=== PATIENT | male | born 1980 | race Caucasian/White ===

== ENCOUNTER 2022-04-06 10:04 | Emergency (ER) | payer SELFPAY ==
--- NOTE | 2022-04-06 10:09 | ED.NAVMDI ---
HPI - Nausea/Vomiting/Diarrhea General Chief complaint: Nausea/Vomiting/Diarrhea Stated complaint: vomitting,nausea Time Seen by Provider: 04/06/22 10:09 Source: patient and RN notes reviewed History of Present Illness HPI Narrative: Patient is a 42-year-old male who presents the urgent care with complaints of nausea, loose stools and vomiting. Patient states that it started yesterday and he had to leave work today due to the extreme nausea. Patient denies of any abdominal pain and feels that the symptoms are starting to get a little bit better. Patient states his last full meal was a pork chop that he made at home. Denies of any ill exposures. Patient has not taken anything [id number] for his symptoms. Patient denies a fever or upper respiratory complaints. No other acute complaints. No acute distress noted. Patient aware of the plan of care. Some parts of this dictation were generated by voice recognition software and may contain typographical and/or grammatical inaccuracies. Related Data Home Medications Medication Instructions Recorded Confirmed No Home Medications 04/06/22 04/06/22 Allergies Allergy/AdvReac Type Severity Reaction Status Date / Time No Known Allergies Allergy Verified 04/06/22 10:21 Review of Systems Review of Systems: CONSTITUTIONAL: Denies fever, chills, or sweats. EYES: Denies visual changes, redness, or discharge. ENT: Denies rhinorrhea, congestion, sore throat, or otalgia. CARDIOVASCULAR: Denies chest pain, palpitations, or edema. RESPIRATORY: Denies cough or dyspnea. GASTROINTESTINAL: Reports of nausea, vomiting and diarrhea without abdominal pain GENITOURINARY: Denies dysuria or hematuria. SKIN: Denies rash or itching. MUSCULOSKELETAL: Denies back pain, joint pain, or myalgia. NEUROLOGIC: Denies headache, numbness, or weakness. All other systems reviewed are negative, except as documented in HPI. PMFSH Comments At the time of my signature, I reviewed and agree with the nursing past medical, surgical, social, and family history. There is no relevant family history pertinent to the patient complaint. Exam Narrative: GENERAL: This is a well-nourished, well-developed patient, in no apparent distress. HEAD: normocephalic, atraumatic. EYES: PERRL. Sclera clear/white. Vision is grossly intact. EARS: External ears normal NOSE: External nose normal with no obvious nasal discharge, nares without redness, no rhinorrhea. THROAT: Mucous membranes moist NECK: Neck supple CARDIOVASCULAR: Regular rate and rhythm without murmurs, gallops, or rubs. RESPIRATORY: Clear to auscultation. Breath sounds equal bilaterally. No wheezes, rales, or rhonchi. GASTROINTESTINAL: Abdomen soft, non-tender, nondistended. Bowel sounds are hyperactive. No guarding. SKIN: warm, intact with no suspicious lesions or rash, good texture and turgor. NEURO: awake, alert, and oriented to person, place and time. There were no obvious focal neurologic abnormalities. EXTREMITIES: No clubbing, cyanosis, or edema. Course Course Level of Care: Express Care Visit Vital Signs Vital signs: Vital Signs Temperature 99.1 F 04/06/22 10:14 Pulse Rate 60 04/06/22 10:14 Respiratory Rate 16 04/06/22 10:14 Blood Pressure 140/85 04/06/22 10:14 Pulse Oximetry 100 04/06/22 10:14 Oxygen Delivery Room Air 04/06/22 10:14 Temperature 99.1 F 04/06/22 10:14 Pulse Rate 60 04/06/22 10:14 Respiratory Rate 16 04/06/22 10:14 Blood Pressure 140/85 04/06/22 10:14 Pulse Oximetry 100 04/06/22 10:14 Oxygen Delivery Room Air 04/06/22 10:14 Reviewed MDM - Nausea/Vomiting/Diarrhea MDM Narrative Medical decision making narrative: Advised patient to use Pepto-Bismol [id number] for symptom relief. Eat bland foods for the next 24 to 48 hours for stomach rest. Increase water intake. If you develop any increase in symptoms associated persistent nausea, vomiting, abdominal pain and fever?go to the
[2022-04-06 10:14] VITALS: BP 140/85; PULSE 60; RESP 16; TEMP 37.3; O2SAT 100
[2022-04-06 11:21] VITALS: BP 129/79; PULSE 79; RESP 18; O2SAT 100
== END 2022-04-06 10:35 | disposition home or self-care (01) ==
PROVIDERS: Emergency Provider Nurse Practitioner Family
DX: R11.2 Nausea with vomiting, unspecified (principal); Z96.651 Presence of right artificial knee joint; M92.529 Juvenile osteochondrosis of tibia tubercle, unspecified leg
CPT/HCPCS: 99211; G0463

== ENCOUNTER 2025-10-10 10:45 | Emergency (ER) | payer SELFPAY ==
--- NOTE | ~2025-10-10 | XR_ITS ---
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 Findings: No acute fracture or malalignment. No significant degenerative changes. Soft tissues unremarkable. Impression: No acute fracture or malalignment. Reviewed, dictated and finalized at location P. UCT SAFETY TESTER Impression: No acute fracture or malalignment.
[2025-10-10 11:02] VITALS: BP 147/86; PULSE 72; RESP 18; TEMP 36.6; O2SAT 100
--- NOTE | 2025-10-10 11:35 | ED.GENADULT ---
HPI - General Adult General Chief complaint: Extremity Injury, Upper Stated complaint: Numbness, Burning of Both Hands Time Seen by Provider: 10/10/25 11:25 Source: patient, RN notes reviewed and old records reviewed Mode of arrival: ambulatory Limitations: no limitations History of Present Illness HPI narrative: 45 year old male presents to [facility] care with complaints of bilateral hands burning and pain to the fingers of both hands predominantly to 1st thru 3rd fingers of hands. Patient reports that he is dropping things at work and he has tingling and numbness to his fingers for about 1-2 month with no known injury.. Patient also reports that he has pain and decreased mobility to his left shoulder and is unable to raise arm upward. 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 Patient has not taken any OTC medications for his disomfort. MD complaint: bilateral hand pain and burning and also pain left shoulder Onset (ago): month(s) (1-2 months ago) Severity scale (1-10): 8 Related Data Allergies Allergy/AdvReac Type Severity Reaction Status Date / Time No Known Allergies Allergy Verified 10/10/25 11:01 Review of Systems Review of Systems: CONSTITUTIONAL: Denies fever, chills, or sweats. EYES: Denies visual changes, redness, or discharge. ENT: Denies rhinorrhea, congestion, sore throat, or otalgia. CARDIOVASCULAR: Denies chest pain, palpitations, or edema. RESPIRATORY: Denies cough or dyspnea. GASTROINTESTINAL: Denies abdominal pain, nausea, vomiting, or diarrhea. GENITOURINARY: Denies dysuria or hematuria. SKIN: Denies rash or itching. MUSCULOSKELETAL: Denies back pain, Left shoulder joint pain, or myalgia.+Tinel test noted bilaterally, tingling and burning to bilateral hands with numbness sensation to 1-3rd fingers NEUROLOGIC: Denies headache, numbness, or weakness. PSYCHIATRIC: Denies anxiety or depression. All systems reviewed & are unremarkable except as noted in HPI and below PMFSH Comments At time of signature, agree with nursing past medical, surgical, social and family history. There is no relevant family history pertinent to the presenting complaint Exam Narrative: GENERAL: Well-appearing, well-nourished, and in no acute distress. HEAD: Normocephalic, atraumatic. EYES: PERRLA and EOMI. ENT: Nares clear, no rhinorrhea or epistaxis. Mucous membranes moist. NECK: Supple. no lymphadenopathy CHEST: Clear to auscultation. No respiratory distress. SAO2 100% on room air HEART: Regular rate and rhythm. No murmur heard. Normal peripheral pulses. ABDOMEN: Soft, nontender, nondistended, normal active bowel sounds. EXTREMITIES: Normal range of motion. No edema. Exception noted with decreased extension and flexion of left shoulder due to pain, bilateral burning of bilateral hands with numbness tingling to 1-3 fingers of bilateral hands.+Tinel tests bilateral wrists. Pulses strong bilateral radial and nail beds have brisk capillary refill. SKIN: Warm, dry, no rash. NEURO: No focal deficits. Alert and oriented x3. Course Course Level of Care: Express Care Visit Vital Signs Vital signs: Vital Signs Temperature 36.6 C 10/10/25 11:02 Pulse Rate 72 10/10/25 11:02 Respiratory Rate 18 10/10/25 11:02 Blood Pressure 147/86 H 10/10/25 11:02 Pulse Oximetry 100 10/10/25 11:02 Oxygen Delivery Room Air 10/10/25 11:02 Temperature 36.6 C 10/10/25 11:02 Pulse Rate 72 10/10/25 11:02 Respiratory Rate 18 10/10/25 11:02 Blood Pressure 147/86 H 10/10/25 11:02 Pulse Oximetry 100 10/10/25 11:02 Oxygen Delivery Room Air 10/10/25 11:02 reviewed MDM MDM Narrative Medical decision making narrative: 45 year old male with 1-2 month duration of burning pain to bilateral hands with numbness and tingling to1-3rd fingers of hands has become increasingly difficulty to hold tool at his job reports dropping things. Patient also reports decreased mobility of left shoulder with inability to raise above head. Shoulder x-ray negative for any mal alignment or degenerative changes. Patient to try bedtime splints to bilateral wrists and 5 days of steroid RX and to take Tylenol or Ibuprofen for pain. Recommended patient make follow up appointment with ortho or hand surgeon for further evaluation. Anticipatory guidance and reason to seek care in ED reviewed with patient with understanding voiced. Differential Diagnosis Differential Diagnosis: Differential diagnostic considerations for upper extremity injury include sprain/strain of wrist, fracture of wrist, finger sprain, dislocation of finger, fracture of hand, dislocation of shoulder, fracture of humerus, fracture of clavicle, laceration, tendon injury, carpal tunnel syndrome.? Imaging Data Attestation: I personally reviewed and interpreted this imaging study as follows: My impression: No fracture or mal alignment no degenerative changes Radiologist's impression: ITS Impressions Shoulder X-Ray 10/10/25 11:56 Impression: No acute fracture or malalignment. 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 Findings: No acute fracture or malalignment. No significant degenerative changes. Soft tissues unremarkable. Impression: No acute fracture or malalignment. Reviewed, dictated and finalized at location P. PHERAL EDP EQUIPMENT OPERATOR Please be advised this is a medical document. It is intended for [id number] communication. It is written in medical language and may contain unfamiliar abbreviations or verbiage. Medical documents are intended to carry relevant information, facts as evident, and the clinical opinion of the practitioner at the time of the encounter. This report may have been done utilizing a voice recognition system. Attempts have been made to correct errors. However, there may be uncorrected grammatical, spelling, and recognition errors present. The file time of this note does not necessarily represent the time of service. Dictated By: Omar Conner MD 10/10/25 1156 Signed By: <Electronically signed by Omar Conner MD in OV> Critical Care Time Critical Care Time Critical Care Time: No Discharge Plan Discharge Clinical Impression: Carpal tunnel syndrome, bilateral, Left shoulder strain Patient Disposition: Home Condition: Stable Instructions: Carpal Tunnel Syndrome (DC), Shoulder Pain (ED) Additional Instructions: Tylenol for lesser pain Ibuprofen regularly for the next 2-3 days for the inflammation 400-600 mg po 3 times daily for 3days Prednisone 40 mg daily for 5 days Follow-up with orthopedic surgeon or hand surgeon in regards to hand pain and burning Follow-up with PCP if further problems or concerns Ice to the area 20-30 minutes 4-6 times a day Elevate above heart If your symptoms persist, change or worsen significantly before you can contact your personal physician then please, without delay, go to the emergency department for further evaluation. Follow-up with PCP in 7-10 days or sooner if needed Follow up with PCP soon in regards to your blood pressure which is elevated above threshold for referral. Blood pressure above 120/80 may indicate pre-hypertension.146/86 Patient Language: Yakut Prescriptions: New prednisone 20 mg tablet 40 mg PO DAILY 5 Days Qty: 10 0RF Follow-up/Referrals: PHYSICIAN,CHIEF NURSING OFFICER [Primary Care Provider, Internal Medicine] Stand Alone Forms: Work/School Release IP Time of Disposition: 12:15 Quality Celine Coma Scale Eyes: Open Verbal: Oriented and Alert Motor: Follows Commands Celine Coma Total Score: 15
== END 2025-10-10 12:34 | disposition home or self-care (01) ==
PROVIDERS: Emergency Provider Registered Nurse
DX: G56.03 Carpal tunnel syndrome, bilateral upper limbs (principal); S46.912A Strain of unspecified muscle, fascia and tendon at shoulder and upper arm level, left arm, initial encounter; W01.0XXA Fall on same level from slipping, tripping and stumbling without subsequent striking against object, initial encounter; Y99.0 Civilian activity done for income or pay
CPT/HCPCS: 73030; 99213; G0463